=== PATIENT | female | born 1980 | race Caucasian/White ===

== ENCOUNTER 2019-01-11 10:25 | Outpatient (CLI) ==
[2014-10-09 10:31] VITALS: BMI 18.0
--- NOTE | 2019-01-11 11:17 | DI ---
EXAM: Three views of the thoracic spine. History: Thoracic spine pain. Findings: No acute fracture or subluxation of the thoracic spine. Disc space heights are preserved. No abnormal calcifications or radiopaque foreign bodies. Impression: Unremarkable exam
--- NOTE | 2019-01-11 11:39 | DI ---
EXAM: Sacrum/coccyx three views HISTORY: Sacral coccygeal pain. FINDINGS: There is mild symmetric arthropathy of the sacroiliac joints with no bony fusion or diasta ses. No fracture is seen. General bone density is normal. Lateral projection reveals normal alignm ent of the sacrum and coccygeal segments. IMPRESSION: There is mild bilateral sacroiliitis.
--- NOTE | 2019-01-11 13:24 | US ---
EXAM: Thyroid ultrasound History: Thyroid nodules. Comparison: None available. Technique: Multiple sonographic images through the thyroid gland were obtained. Color duplex Dopple r was used to interrogate vascular flow. Findings: The right lobe of the thyroid measures 6.7 cm x 2.6 cm x 1.8 cm and demonstrates multiple nodules wit h the largest being mostly solid and measuring 2.8 cm. The thyroid isthmus measures 0.5 cm in thickness. The left lobe of the thyroid measures 6.3 cm x 1.7 cm x 2.1 cm and demonstrates multiple nodules with the largest being complex and measuring 1.1 cm. No extrathyroidal masses are identified. The thyroid gland is hypervascular. Impression: 1. Enlarged hypervascular thyroid gland. Correlate for thyroiditis or possible Grave's disease. 2. Dominant 2.8 cm solid nodule within the right thyroid lobe. Tissue sampling is recommended.
== END 2019-01-11 10:26 | disposition home or self-care (01) ==
LOC: RAD 10:25
PROVIDERS: ATTEND Nurse Practitioner Family
DX: E04.1 Nontoxic single thyroid nodule (principal); M54.5 Low back pain

== ENCOUNTER 2019-02-22 13:23 | Outpatient (CLI) ==
[2014-10-09 10:31] VITALS: BMI 18.0
--- NOTE | 2019-02-23 10:38 | MRI ---
EXAM: MRI of the pelvis without contrast COMPARISON: None available. HISTORY: Bilateral sacroiliac joint and bilateral hip pain. Sacroiliitis. TECHNIQUE: Multiplanar noncontrast MR images of the pelvis/bilateral hips were acquired using a 1.2 Diana magnet. FINDINGS: There is intervertebral disc desiccation at the level of the lower lumbar spine with mild facet hypertrophy at several levels, most pronounced at L4/L5. Mild degenerative spurring at the sac roiliac joints without evidence of active sacroiliitis or ankylosis. There is no evidence of an acut e fracture, osteomyelitis or osteonecrosis. Minimal degenerative spurring pubic symphysis and bilate ral hip joints. Trace hip joint effusions bilaterally. There is no evidence of greater trochanteric bursitis. No full-thickness tendon tear or tendon retra ction. No soft tissue mass or pathologically enlarged lymph nodes identified within the pelvis. The sciatic nerves are unremarkable appearance throughout their visualized course bilaterally. Status post hyst erectomy. IMPRESSION: 1. No acute osseous abnormality. Mild degenerative changes as described. This includes mild degene rative changes of the hips and sacroiliac joints without evidence of active sacroiliitis or ankylosis . 2. Trace hip joint effusions bilaterally. 3. Status post hysterectomy. 4. Mild degenerative changes of the lower lumbar spine. Correlation with dedicated MRI of the lumba r spine could be considered if clinically warranted.
== END 2019-02-22 13:24 | disposition home or self-care (01) ==
LOC: RAD 13:23
PROVIDERS: ATTEND Nurse Practitioner Family
DX: M46.1 Sacroiliitis, not elsewhere classified (principal)